=== PATIENT | male | born 1995 | race American Indian/Alaskan Native ===

== ENCOUNTER 2020-08-12 20:03 | Emergency (ER) | payer SELFPAY ==
[2020-08-12 21:30] VITALS: BP 150/69
--- NOTE | 2020-08-12 21:31 | Event Note ---
ED Screening Note Date of service: 08/12/20 Time: 21:15 ED Screening Note: Patient is a 25 yo AA male with a h/o heavy alcohol and marijuana abuse who presents to the ED with c/o acute onset persistent hematochezia for the last 3 days. Patient describes the blood as bright read that fills the toilet whenever he has a bowel movement. Patient states that the last time had a bowel movement was 2 days ago and that he had similar symptoms. Patient denies nausea, vomiting, abdominal pain, constipation, hemorrhoids, diarrhea, dizziness, syncope, hematuria, testicular pain, chest pain or dyspnea, cough, traumatic injury or fever and chills or low back pain This initial assessment/diagnostic orders/clinical plan/treatment(s) is/are subject to change based on patients health status, clinical progression and re- assessment by fellow clinical providers in the ED. Further treatment and workup at subsequent clinical providers discretion. Patient/guardian urged not to elope from the ED as their condition may be serious if not clinically assessed and managed. Initial orders include: CBC, CMP, UA, Occult blood
[2020-08-12 22:45] LABS: Basophils # (Auto) 0.1 K/mm3 (0.0-0.1); Eosinophils # (Auto) 0.7 K/mm3 (0.0-0.4); Hematocrit 47.8 % (35.5-45.6); Hemoglobin 15.8 gm/dl (11.8-15.2); Lymphocytes # (Auto) 2.9 K/mm3 (1.2-5.4); Lymphocytes % (Auto) 35.8 % (13.4-35.0); Mean Corpuscular HGB Conc 33 % (32-34); Mean Corpuscular Volume 81 fl (84-94); Monocytes # (Auto) 0.6 K/mm3 (0.0-0.8); Monocytes % (Auto) 6.8 % (0.0-7.3); Platelet Count 178 K/mm3 (140-440); Red Blood Count 5.88 M/mm3 (3.65-5.03); Red Cell Distribution Width 13.6 % (13.2-15.2)
[2020-08-12 22:49] LABS: Bilirubin,Urine NEG (Negative); Blood,Urine NEG (Negative); Color,Urine Yellow (Yellow); Mucus,Urine FEW /HPF; Protein,Urine <15 mg/dL mg/dL (Negative); Urobilinogen,Urine < 2.0 mg/dL (<2.0); WBC,Urine < 1.0 /HPF (0.0-6.0)
[2020-08-12 23:08] LABS: Alanine Aminotransferase 13 units/L (7-56); Albumin 4.1 g/dL (3.9-5); BUN/Creatinine Ratio 13; Blood Urea Nitrogen 14 mg/dL (9-20); Calcium 8.4 mg/dL (8.4-10.2); Hemolysis Index 8
--- NOTE | 2020-08-13 03:07 | Emergency Department Report ---
ED GI Bleed HPI - General Chief complaint: GI Bleed Stated complaint: BLOOD IN STOOL Time Seen by Provider: 08/13/20 02:58 Source: patient Mode of arrival: Ambulatory Limitations: No Limitations - History of Present Illness Initial comments: Patient is a 25-year-old male who presents emergency room with complaints of bright red blood per rectum. Patient states he has blood streaks on the stool. Patient has been going on for 3 days. Patient denies profuse hemorrhage from his rectum. Patient denies any bleeding directly from his rectum and is only seeing streaks on the stool. Patient denies fever and chills. Patient denies abdominal pain. Patient states symptoms are constant and not worsening. Patient denies nausea and vomiting. Patient denies chest pain or shortness of breath. Patient denies dizziness. Patient denies recent travel. Patient denies recent international travel. Patient denies exposure to the novel coronavirus. Patient denies sick contacts. Patient denies fever and chills. Patient denies cough. Patient denies diarrhea. Patient denies coming in contact with anybody with symptoms of the novel coronavirus. MD complaint: blood streaked stool -: Sudden Severity scale (0 -10): 0 Quality: painless Consistency: constant Improves with: none Worsens with: none Associated Symptoms: denies other symptoms. denies: abdominal pain, nausea, vomiting, epistaxis, fever/chills, headaches, loss of appetite, malaise, easy bruising, rash, other bleeding, shortness of breath, syncope, weakness - Related Data Previous Rx's Medication Instructions Recorded Last Taken Type Famotidine [Pepcid] 40 mg PO QHS #20 tablet 03/31/16 Unknown Rx traMADoL [Ultram] 50 mg PO Q6HR PRN #7 tablet 03/31/16 Unknown Rx Docusate Sodium [Colace] 100 mg PO BID PRN #30 capsule 08/13/20 Unknown Rx Allergies Allergy/AdvReac Type Severity Reaction Status Date / Time No Known Allergies Allergy Verified 03/30/16 23:55 ED Review of Systems ROS: Stated complaint: BLOOD IN STOOL Other details as noted in HPI Constitutional: denies: chills, fever Eyes: denies: eye pain, eye discharge, vision change ENT: denies: ear pain, throat pain Respiratory: denies: cough, shortness of breath, wheezing Cardiovascular: denies: chest pain, palpitations Endocrine: no symptoms reported Gastrointestinal: as per HPI. denies: abdominal pain, nausea, vomiting, diarrhea Genitourinary: denies: urgency, dysuria Musculoskeletal: denies: back pain, joint swelling, arthralgia Skin: denies: rash, lesions Neurological: denies: headache, weakness, paresthesias Psychiatric: denies: anxiety, depression Hematological/Lymphatic: denies: easy bleeding, easy bruising ED Past Medical Hx - Past Medical History Previous Medical History?: Yes Additional medical history: PANCREATITIS - Surgical History Past Surgical History?: No - Family History Family history: no significant - Social History Smoking Status: Never Smoker Substance Use Type: Marijuana - Medications Home Medications: Home Medications Medication Instructions Recorded Confirmed Last Taken Type Famotidine [Pepcid] 40 mg PO QHS #20 tablet 03/31/16 Unknown Rx traMADoL [Ultram] 50 mg PO Q6HR PRN #7 tablet 03/31/16 Unknown Rx Docusate Sodium [Colace] 100 mg PO BID PRN #30 capsule 08/13/20 Unknown Rx ED Physical Exam - General Limitations: No Limitations General appearance: alert, in no apparent distress - Head Head exam: Present: atraumatic, normocephalic - Eye Eye exam: Present: normal appearance - ENT ENT exam: Present: mucous membranes moist - Neck Neck exam: Present: normal inspection - Respiratory Respiratory exam: Present: normal lung sounds bilaterally. Absent: respiratory distress - Cardiovascular Cardiovascular Exam: Present: regular rate, normal rhythm. Absent: systolic murmur, diastolic murmur, rubs, gallop - GI/Abdominal GI/Abdominal exam: Present: soft, normal bowel sounds - Rectal Rectal exam: Present: normal inspection, normal rectal tone, heme (-) stool. Absent: black stool, bloody stool, fecal impaction, mass, tenderness - Extremities Exam Extremities exam: Present: normal inspection - Back Exam Back exam: Present: normal inspection - Neurological Exam Neurological exam: Present: alert, oriented X3 - Psychiatric Psychiatric exam: Present: normal affect, normal mood - Skin Skin exam: Present: warm, dry, intact, normal color. Absent: rash ED Course Vital Signs 08/12/20 21:24 Temperature 98.8 F Pulse Rate 57 L Respiratory 16 Rate Blood Pressure 150/69 O2 Sat by Pulse 99 Oximetry - Reevaluation(s) Reevaluation #1: Rectal exam done. Negative Hemoccult. 08/13/20 03:15 Reevaluation #2: I discussed all results and clinical findings with patient. I discussed plan of care with patient. Patient agrees with plan of care. Patient is stable for discharge. Patient will be discharged home. Patient given discharge instructions. Patient voiced understanding of discharge instructions. 08/13/20 03:50 ED Medical Decision Making - Lab Data Result diagrams: 08/12/20 21:45 08/12/20 21:45 - Medical Decision Making Patient is a 25-year-old male presents emergency room for blood in stool x3 days. Patient denies any other complaints. Patient had labs done which were essentially unremarkable. Patient had a Hemoccult and rectal exam done and were negative for occult blood. Patient can be managed as an outpatient. Patient stable for discharge. Patient discharged home. - Differential Diagnosis Bright red blood per rectum, blood streaking on stool, Critical care attestation.: If time is entered above; I have spent that time in minutes in the direct care of this critically ill patient, excluding procedure time. ED Disposition Clinical Impression: Bright red blood per rectum, Blood in stool Disposition: DC-01 TO HOME OR SELFCARE Is pt being admited?: No Does the pt Need Aspirin: No Condition: Stable Instructions: Gastrointestinal Bleeding, [id number], Lower Gastrointestinal Bleeding, Rectal Bleeding, [id number] Additional Instructions: Patient to follow-up with primary care in 2 to 3 days. Patient to follow-up with gastroenterology in 2 to 3 days. Patient to rest. Patient to increase water. Patient to avoid strenuous exercise or heavy lifting until cleared by gastroenterology and primary care. Patient to take Tylenol as needed for pain. Patient to avoid aspirin and ibuprofen. Patient to eat a high-fiber diet. Patient to take meds as directed. Patient to return to the ER if condition worsens, changes or new symptoms arise. Prescriptions: Docusate Sodium [Colace] 100 mg PO BID PRN #30 capsule PRN Reason: Constipation Referrals: PRIMARY CARE, [Primary Care Provider] - 2-3 Days NIHARIKA CHANDRA MD [Staff Physician] - 2-3 Days Forms: Accompanied Note Time of Disposition: 03:52
== END 2020-08-13 04:30 | disposition home or self-care (01) ==
LOC: ED 20:03
DX: K92.1 Melena (principal); F12.10 Cannabis abuse, uncomplicated; Z79.899 Other long term (current) drug therapy
CPT/HCPCS: 36415; 80053; 81001; 85025

== ENCOUNTER 2021-01-12 06:53 | Emergency (ER) | payer OTHER ==
--- NOTE | 2021-01-12 10:27 | Emergency Department Report ---
ED Extremity Problem HPI - General Chief complaint: Extremity Injury, Lower Stated complaint: RT ANKLE PAIN Time Seen by Provider: 01/12/21 09:48 Source: patient Mode of arrival: Ambulatory Limitations: No Limitations - History of Present Illness Initial comments: 26-year-old -[place] male presents to the emergency room complaining of right ankle pain for the last 2 days. Patient reports at the same site he had surgery on his ankle about 15 years ago. Patient denies any recent injury. He states that the pain increases when he walks too much. Patient denies any pain at this time. MD Complaint: extremity pain Onset/Timin -: days(s) Location: right, other (Ankle) History of Same: Yes -: Yes myalgia, Yes arthralgia Radiation: none Severity scale (0 -10): 0 Consistency: intermittent Improves with: rest Worsens with: walking Associated Symptoms: denies other symptoms - Related Data Previous Rx's Medication Instructions Recorded Last Taken Type Famotidine [Pepcid] 40 mg PO QHS #20 tablet 03/31/16 Unknown Rx traMADoL [Ultram] 50 mg PO Q6HR PRN #7 tablet 03/31/16 Unknown Rx Docusate Sodium [Colace] 100 mg PO BID PRN #30 capsule 08/13/20 Unknown Rx Allergies Allergy/AdvReac Type Severity Reaction Status Date / Time No Known Allergies Allergy Verified 03/30/16 23:55 ED Review of Systems ROS: Stated complaint: RT ANKLE PAIN Other details as noted in HPI Comment: All other systems reviewed and negative ED Past Medical Hx - Past Medical History Additional medical history: PANCREATITIS - Surgical History Additional Surgical History: RIGHT ANKLE - Social History Smoking Status: Never Smoker Substance Use Type: Alcohol, Marijuana - Medications Home Medications: Home Medications Medication Instructions Recorded Confirmed Last Taken Type Famotidine [Pepcid] 40 mg PO QHS #20 tablet 03/31/16 Unknown Rx traMADoL [Ultram] 50 mg PO Q6HR PRN #7 tablet 03/31/16 Unknown Rx Docusate Sodium [Colace] 100 mg PO BID PRN #30 capsule 08/13/20 Unknown Rx ED Physical Exam - General Limitations: No Limitations General appearance: alert, in no apparent distress - Head Head exam: Present: atraumatic, normocephalic - Eye Eye exam: Present: normal appearance - ENT ENT exam: Present: normal external ear exam - Neck Neck exam: Present: normal inspection, full ROM - Respiratory Respiratory exam: Absent: accessory muscle use - Cardiovascular Cardiovascular Exam: Present: regular rate - Expanded Lower Extremity Exam Right Upper Leg exam: Present: normal inspection Knee exam: Present: normal inspection Lower Leg exam: Present: normal inspection Ankle exam: Present: normal inspection (Surgical scar medially ankle), full ROM. Absent: swelling, abrasion, laceration, ecchymosis, crepidus, dislocation, erythema Gait: Positive: observed and normal - Back Exam Back exam: Present: normal inspection - Neurological Exam Neurological exam: Present: alert, oriented X3 - Psychiatric Psychiatric exam: Present: normal affect, normal mood - Skin Skin exam: Present: warm, dry, intact, normal color. Absent: rash ED Course Vital Signs 01/12/21 07:44 Temperature 98.5 F Pulse Rate 56 L Respiratory 18 Rate Blood Pressure 169/73 O2 Sat by Pulse 96 Oximetry Critical care attestation.: If time is entered above; I have spent that time in minutes in the direct care of this critically ill patient, excluding procedure time. ED Disposition Clinical Impression: Chronic pain of right ankle Disposition: DC-01 TO HOME OR SELFCARE Is pt being admited?: No Does the pt Need Aspirin: No Condition: Stable Instructions: Chronic Pain, Adult Additional Instructions: Continue with Aleve ibuprofen or Tylenol for pain. Follow-up with an orthopedic provider I have listed 1 below for your convenience. Referrals: MARTHA ALVAREZ MD [Primary Care Provider] - 3-5 Days TEETEE BEACH MD [Staff Physician] - 3-5 Days Forms: Work/School Release Form(ED) Time of Disposition: 10:35
[2021-01-12 10:40] VITALS: BP 150/70
== END 2021-01-12 10:41 | disposition home or self-care (01) ==
LOC: ED 06:53
DX: M25.571 Pain in right ankle and joints of right foot (principal); K85.90 Acute pancreatitis without necrosis or infection, unspecified; F10.20 Alcohol dependence, uncomplicated; F12.90 Cannabis use, unspecified, uncomplicated; Z79.1 Long term (current) use of non-steroidal anti-inflammatories (NSAID)
CPT/HCPCS: 99281; 99282